=== PATIENT | female | born 1945 | race Caucasian/White ===

== ENCOUNTER 2017-03-23 03:20 | Emergency (ER) | payer MEDICARE, BC ==
[~2017-03-23 03:20] MED LIST: ASPIRIN81 M1 PO; AUGMENTIN875 MG PO; LOMOTIL 2.5-0.1 EACH PO; LOMOTIL TABLET1 TAB; NITROGLYCERIN0.4 M2 SL; NORVASC5 M2 PO; QUESTRAN LIGH4 G/PKT; SYNTHROID50 MC1 PO; SYNTHROID50 MCG; SYNTHROID50 MCG PO
[2017-03-23 04:03] LABS: BASO % 0.2 % (0-2); EOSINOPHIL ABSOLUTE COUNT 0.3 tho/cmm (0.0-0.7); HCT-HEMATOCRIT 39.1 % (34.0-49.0); HGB-HEMOGLOBIN 13.3 gm/dl (12.0-15.5); IMMATURE GRANULOCYTES ABSOLUTE 0.01 tho/cmm (0-0.03); IMMATURE GRANULOCYTES PERCENT 0.2 % (0-0.3); LYMPH % 36.3 % (20-45); LYMPH ABSOLUTE COUNT 2.4 tho/cmm (0.8-4.5); MCH (MEAN CORPUSCULAR HGB) 30.7 pg (28.0-32.0); MCV (MEAN CELL VOLUME) 90.3 fl (82.0-96.0); MEAN PLATELET VOLUME 9.3 cmc (9.4-12.4); MONO % 7.9 % (0-12); MONOCYTE ABSOLUTE COUNT 0.5 tho/cmm (0.0-1.2); NEUTROPHIL ABSOLUTE COUNT 3.3 tho/cmm (1.6-8.0); NEUTROPHIL-AUTOMATED 3.3 tho/cmm (1.6-8.0); NEUTROPHILS % 50.4 % (40-80); PLATELET COUNT 264 tho/cmm (150-450); RED BLOOD COUNT 4.33 mil/cmm (4.00-5.20); RED CELL DISTRIBUTION WIDTH 12.6 % (12.4-16.4); WHITE BLOOD COUNT 6.6 tho/cmm (4.0-10.0)
[2017-03-23 04:14] LABS: URINE APPEARANCE CLEAR; URINE BILIRUBIN NEGATIVE (NEG); URINE BLOOD NEGATIVE (NEG); URINE COLOR YELLOW; URINE GLUCOSE (UA) NEGATIVE (NEG); URINE KETONE NEGATIVE (NEG); URINE LEUKOCYTE ESTERASE NEGATIVE (NEG); URINE NITRITE NEGATIVE (NEG); URINE PROTEIN NEGATIVE (NEG)
[2017-03-23 04:22] LABS: ANION GAP 12 mmol/L (0-20); BLOOD UREA NITROGEN 14 mg/dl (6-24); CALCIUM 9.2 mg/dl (8.5-10.5); CARBON DIOXIDE-VENOUS 25 mmol/L (22-32); CHLORIDE 108 mmol/l (96-110); CREATININE 0.71 mg/dl (0.50-1.10); GLUCOSE 94 mg/dL (70-110); SODIUM 141 mmol/L (135-145); eGFR VALUE FOR BLACK >90 mL/Min
[2017-03-23 04:25] LABS: TSH-THYROID STIMULATING HORM. 4.08 uIU/ml (0.40-3.80)
[2017-05-10] MEDS ORDERED: SYNTHROID50 MC1 PO (16:00)
[2017-05-10] MEDS ORDERED: CYTOMEL5 MC1 PO (16:01)
[2017-05-10] MEDS ORDERED: CALCIUM + VITA1 EAC4 PO (16:51)
[2017-05-10] MEDS ORDERED: MULTIVITAMINS1 EAC7 PO (16:51)
[2017-05-10] MEDS ORDERED: COQ-10100 M1 PO (16:51)
[2017-05-10] MEDS ORDERED: TURMERIC500 M2 PO (16:52)
[2017-05-10] MEDS ORDERED: VITAMIN D31000 UNI3 PO (16:52)
[2017-05-10] MEDS ORDERED: GRAPE SEED50 M1 PO (16:52)
[2017-05-10] MEDS ORDERED: [UNRECOGNIZED DRUG - OTHER] PO (16:52)
[2017-05-10] MEDS ORDERED: RESVERATROL PO (16:53)
[2017-05-10] MEDS ORDERED: PREVAGEN PO (16:54)
== END 2017-03-23 05:20 ==
LOC: EDMED 03:20
PROVIDERS: Nurse Practitioner Family
DX: E03.9 Hypothyroidism, unspecified (principal); R55 Syncope and collapse